=== PATIENT | male | born 1935 | race Caucasian/White ===

== ENCOUNTER 2022-12-24 21:05 | Emergency (ER) | payer MEDICARE ==
[~2022-12-24] VITALS: Ht 177.8 cm; Wt 78.9 kg
[2022-12-24 21:15] VITALS: BP 114/103
[2022-12-24] MEDS ORDERED: BENZ100A PO (21:55)
== END 2022-12-24 21:56 | disposition home or self-care (01) ==
LOC: ER 21:05
DX: U07.1 COVID-19 (principal)
CPT/HCPCS: 99283